=== PATIENT | female | born 1990 | race African-American/Black ===

== ENCOUNTER 2017-07-08 17:59 | Emergency (ER) | payer MEDICAID ==
[2017-07-08 18:24] VITALS: BP 141/88
[2017-07-08] MEDS ORDERED: ACETAMINOPHEN 325 MG TABLET PO ONE (19:08)
--- NOTE | 2017-07-08 19:11 | ER Document Report ---
HPI - HPI Patient complains to provider of: Injured right foot Onset: This afternoon - 1200 Pain Level: 5 Context: 26-year-old female injured her right ankle and foot when she stepped off of her porch at her lunch break today from [employer] at 12 noon. She had to go back to work and was forced to work on it ambulating with her shoe on until 4:00. When she got in her car and looked at it she saw how swollen it was. Now it hurts so much she cannot walk on it. No previous injury. sHe does not want to take anything other than Tylenol for pain because she might be . Associated Symptoms: None Exacerbated by: Walking Relieved by: Denies Similar symptoms previously: No Recently seen / treated by doctor: No - ROS ROS below otherwise negative: Yes Systems Reviewed and Negative: Yes All other systems reviewed and negative - REPRODUCTIVE Reproductive: DENIES: : Past Medical History - General Information source: Patient - Social History Smoking Status: Never Smoker Frequency of alcohol use: None Drug Abuse: None Lives with: Family Family History: Reviewed & Not Pertinent Patient has suicidal ideation: No Patient has homicidal ideation: No - Past Medical History Cardiac Medical History: Reports: Hx Hypertension - Not medicated Neurological Medical History: Reports: Hx Migraine Renal/ Medical History: Denies: Hx Peritoneal Dialysis Surgical Hx: Negative - Immunizations Immunizations up to date: Yes Hx Diphtheria, Pertussis, Tetanus Vaccination: Yes Vertical Provider Document - CONSTITUTIONAL Agree With Documented VS: Yes Exam Limitations: No Limitations - INFECTION CONTROL TRAVEL OUTSIDE OF THE [place] IN LAST 30 DAYS: No - HEENT HEENT: Atraumatic, Normocephalic - NECK Neck: Supple - RESPIRATORY O2 Sat by Pulse Oximetry: 99 - MUSCULOSKELETAL/EXTREMETIES Musculoskeletal/Extremeties: Tender, Edema, Eccymosis - Dorsal lateral proximal right foot and some tenderness in the lateral malleolus. Nontender base of the fifth MT - NEURO Level of Consciousness: Awake, Alert Notes: 2+ DP on the right - DERM Integumentary: Warm, Dry, No Rash Course - Re-evaluation Re-evalutation: 07/08/17 19:49 xAYS negative per rad - Vital Signs Vital signs: Temp Pulse Resp BP Pulse Ox 98.4 F 105 H 16 141/88 H 99 07/08/17 18:23 07/08/17 18:23 07/08/17 18:23 07/08/17 18:23 07/08/17 18:23 Procedures - Immobilization Right Ankle Time completed: 20:36 Pre-Proc Neuro Vasc Exam: Normal Immobilizer type: Leroy wrap - padded Performed by: PCT Post-Proc Neuro Vasc Exam: Normal Alignment checked and good: Yes Discharge - Discharge Clinical Impression: Strain of right ankle and foot Qualifiers: Encounter type: initial encounter Qualified Code(s): S96.911A - Strain of unspecified muscle and tendon at ankle and foot level, right foot, initial encounter Condition: Good Disposition: HOME, SELF-CARE Instructions: Acetaminophen, Leroy Wrap ([facility]), Use of Crutches ([facility]), Sprain ([facility] ), Sprained Ankle ([facility]) Additional Instructions: elevate crutches few days leroy wrap for comfort to er any concerns orthopedic doctor if pain persists Please complete the patient satisfaction survey if you get one, and return it.. If you do not receive a survey, then you can go to the [facility] website, [email or web address] and place your comments about your very good care. Thank you very much. It was a pleasure being your medical provider today. Forms: Return to Work
--- NOTE | 2017-07-08 19:35 | RADIOLOGY REPORT (SQ) ---
EXAM DESCRIPTION: ANKLE RIGHT COMPLETE COMPLETED DATE/TIME: 07/08/2017 7:20 pm REASON FOR STUDY: inversion injury COMPARISON: None. NUMBER OF VIEWS: Three views. TECHNIQUE: AP, lateral, and oblique radiographic images acquired of the right ankle. LIMITATIONS: None. FINDINGS: MINERALIZATION: Normal. BONES: No acute fracture or dislocation. No worrisome bone lesions. JOINTS: No effusions. SOFT TISSUES: Lateral soft tissue swelling. No foreign body. OTHER: No other significant finding. IMPRESSION: No fracture. TECHNICAL DOCUMENTATION: JOB ID: [id number] [employer]- All Rights Reserved
--- NOTE | 2017-07-08 19:37 | RADIOLOGY REPORT (SQ) ---
EXAM DESCRIPTION: FOOT RIGHT COMPLETE COMPLETED DATE/TIME: 07/08/2017 7:20 pm REASON FOR STUDY: inversion injury COMPARISON: None. NUMBER OF VIEWS: Three views. TECHNIQUE: AP, lateral and oblique radiographic images acquired of the right foot. LIMITATIONS: None. FINDINGS: MINERALIZATION: Normal. BONES: No acute fracture or dislocation. No worrisome bone lesions. JOINTS: No effusions. SOFT TISSUES: Mild lateral soft tissue swelling. No foreign body. OTHER: No other significant finding. IMPRESSION: NO RADIOGRAPHIC EVIDENCE OF ACUTE INJURY. TECHNICAL DOCUMENTATION: JOB ID: [id number] [employer]- All Rights Reserved
== END 2017-07-08 21:05 | disposition home or self-care (01) ==
LOC: ER 17:59
DX: S96.911A Strain of unspecified muscle and tendon at ankle and foot level, right foot, initial encounter (principal); X58.XXXA Exposure to other specified factors, initial encounter; I10 Essential (primary) hypertension
CPT/HCPCS: 99283; 73610; 73630; J3490

== ENCOUNTER 2018-01-21 15:01 | Outpatient (CLI) | payer MEDICAID | END 2018-01-21 16:00 | disposition home or self-care (01) | LOC: LC 15:01 | PROVIDERS: ATTEND Obstetrics & Gynecology Gynecology | PROC: 4A1HXCZ Monitoring of Products of Conception, Cardiac Rate, External Approach (ICD-10-PCS; principal; 2018-01-21) | DX: O24.419 Gestational diabetes mellitus in pregnancy, unspecified control (principal); Z3A.35 35 weeks gestation of pregnancy | CPT/HCPCS: 59025 ==

== ENCOUNTER 2018-01-28 14:36 | Outpatient (CLI) | payer MEDICAID ==
--- NOTE | 2018-01-28 14:40 | Non Stress Test Report ---
Non Stress Test Datetime Report Generated by CPN: 01/28/2018 14:40 DEMOGRAPHIC EGA NST: 35.0 INDICATION Indication for Study: Diabetes Mellitus VITAL SIGNS Temperature - NST: 98.2 Pulse - NST: 90 RESP - NST: 18 NBPSYS NST: 116 NBPDIA NST: 63 MONITORING Monitor Explained: Monitor Explained; Test Explained; Patient Verbalized Understanding Time on Monitor: 01/21/2018 15:13 Time on Monitor: 01/21/2018 15:13 Time off Monitor: 01/21/2018 15:55 NST Duration: 42 NST INTERVENTIONS NST Interventions: PO Hydration; Reposition Patient NST Interventions: PO Hydration; Reposition Patient Physician Notified NST: A EMMEL, CNM REVIEWED STRIP BABY A: [id number] BABY A Movement : Present Contraction Frequency : NONE FHR Baseline : 140 Accelerations : 15X15 Decelerations : None Variability : Moderate 6-25bpm NST Review: Meets Criteria for Reactive NST NST Review and Verified By : D Latoshaavance RNC NST REPORT Report Trigger: Send Report
--- NOTE | 2018-01-28 15:45 | Non Stress Test Report ---
Non Stress Test Datetime Report Generated by CPN: 01/28/2018 15:45 DEMOGRAPHIC EGA NST: 36.0 INDICATION Indication for Study: Diabetes Mellitus; Other Indication for Study (NST) Other: repeat NST, sent from office VITAL SIGNS Temperature - NST: 97.7 Pulse - NST: 88 RESP - NST: 12 NBPSYS NST: 122 NBPDIA NST: 81 MONITORING Monitor Explained: Monitor Explained; Test Explained; Patient Verbalized Understanding Time on Monitor: 01/28/2018 14:47 Time off Monitor: 01/28/2018 15:25 NST Duration: 38 NST INTERVENTIONS NST Interventions: PO Hydration Physician Notified NST: P CARRILLO, CNM REVIEWED STRIP Physician Notified NST: P. Carrillo CNM BABY A Movement : Present Contraction Frequency : 4-11 FHR Baseline : 140 Accelerations : 15X15 Decelerations : None Variability : Moderate 6-25bpm NST Review: Meets Criteria for Reactive NST NST Review and Verified By : LYNDSAY DUFF, RN NST Results: Reactive NST REPORT Report Trigger: Send Report
== END 2018-01-28 15:28 | disposition home or self-care (01) ==
LOC: LC 14:36
PROVIDERS: ATTEND Obstetrics & Gynecology Gynecology
PROC: 4A1HXCZ Monitoring of Products of Conception, Cardiac Rate, External Approach (ICD-10-PCS; principal; 2018-01-28)
DX: O24.419 Gestational diabetes mellitus in pregnancy, unspecified control (principal); Z3A.36 36 weeks gestation of pregnancy
CPT/HCPCS: 59025

== ENCOUNTER 2018-02-24 05:23 | Inpatient (IN) | payer MEDICAID ==
[2018-02-24] MEDS ORDERED: PENICILLIN G-K 5 MILLION UNIT VIAL ONE (05:47)
--- NOTE | 2018-02-24 05:58 | Admission Physical ---
Datetime Report Generated by CPN: 02/24/2018 05:57 CURRENT ADMISSION Chief Complaint: Uterine Contractions Indication for Induction: Not Applicable Admit Impression : Term, Intrauterine Admit Plan: Admit to Unit; Initiate Labor Protocol ALLERGIES Medication Allergies: No Medication Allergies: oxycodone HCl (02/24/2018); hydrocodone (02/24/2018) Latex: No Latex Allergies OBSTETRICAL HISTORY EDC: 02/25/2018 00:00 : 3 Para: 2 Term: 2 : 0 SAB: 0 IAB: 0 Ectopic: 0 Livin Cesareans: 0 VBACs: 0 Multiple Births: 0 Gestational Diabetes: Yes Rh Sensitization: No Incompetent Cervix: No KATIE: No Infertility: No ART Treatment: No Uterine Anomaly: No IUGR: No Hx Previous C/S: No Macrosomia: No Hx Loss/Stillborn: No PIH: No Hx : No Placenta Previa/Abruption: No Depression/PP Depression: No PTL/PROM: No Post Hemorrhage: No Current Procedures: Ultrasound; NST Obstetrical History Comments: G1 - 2007 Boy 7 lb 3 oz G2 - 2016 Girl 7 lb 3 oz G3 - current GDM diet controlled SEE RECORDS Alcohol: No Marijuana : No Cocaine: No Other Illicit Drugs: No Cigarettes: Current Everyday Smoker. 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 Surgery: No Heart Disease: No Hosp/Surgery: Yes Autoimmune Disorder: No Anesthetic Complications: No Kidney Disease: No Abnormal Pap Smear: No Neuro/Epilepsy: No Psychiatric Disorders: No Other Medical Diseases: No Hepatitis/Liver Disease: No Significant Family History: No Varicosities/Phlebitis: No Trauma/Violence : No Thyroid Dysfunction: No Medical History Comments: Borderline HTN INFECTIOUS HISTORY Gonorrhea: Yes Genital Herpes: No Chlamydia: Yes Tuberculosis: No Syphilis: No Hepatitis: No HIV/AIDS Exposure: No Rash or Viral Illness: No HPV: No Infectious History Comments: Gonorrhea/Chlamydia - 06/26 PHYSICAL EXAM General: Normal HEENT: Normal Neurologic: Normal Thyroid: Normal Heart: Normal Lungs: Normal Breast: Normal Back: Normal Abdomen: Normal Genitourinary Exam: Normal Extremities: Normal DTRs: Normal Pelvic Type: Adequate Vital Signs: Reviewed VAGINAL EXAM Dilatation: 8 Effacement: 100 Station: -1 MEMBRANES Pooling: Negative Membranes: Intact FETUS A EGA: 39.6 Monitoring: External US FHR- Baseline: 140 Variability: Moderate 6-25bpm Accelerations: 15X15 Decelerations: None FHR Category: Category I Estimated Weight (gm): 3500 Presentation: Vertex PLANS FOR LABOR AND DELIVERY Labor and Delivery: None Pain Management: None Feeding Preference: Both Benefit of Breast Feed Discussed: Yes Circumcision: Yes INFORMED CONSENT Signature: with User ID: [email or web address]
[2018-02-24] MEDS ORDERED: PENICILLIN G POTASSIUM 5,000,000 UNIT in DEXTROSE 5%-WATER 100 ML IV ONE (06:04)
[2018-02-24] MEDS ORDERED: MISOPROSTOL 0.2 MG TABLET ONE (06:11)
[2018-02-24] MEDS ORDERED: LIDOCAINE 1% INJ-PF (10 MG/ML) 30 ML SDV ONE (06:11)
[2018-02-24] MEDS ORDERED: OXYTOCIN/NORMAL SALINE 20 UNIT/1,000 ML RTUINJ ONE (06:11)
[2018-02-24 06:32] LABS: APPEARANCE,URINE CLOUDY; BILIRUBIN,URINE NEGATIVE (NEGATIVE); COLOR,URINE YELLOW; GLUCOSE, URINE NEGATIVE (NEGATIVE); KETONES,URINE NEGATIVE (NEGATIVE); LEUKOCYTE ESTERASE,URINE SMALL (NEGATIVE); NITRITE,URINE NEGATIVE (NEGATIVE); PROTEIN,URINE NEGATIVE (NEGATIVE); URINE SPECIFIC GRAVITY 1.012; UROBILINOGEN,URINE NEGATIVE mg/dL (<2.0)
[2018-02-24 06:52] LABS: ABSOLUTE BASOPHILS # (AUTO) 0.1 10^3/uL (0.0-0.2); ABSOLUTE EOSINOPHILS # (AUTO) 0.2 10^3/uL (0.0-0.6); ABSOLUTE LYMPHOCYTES (AUTO) 2.6 10^3/uL (0.5-4.7); ABSOLUTE MONOCYTES (AUTO) 0.6 10^3/uL (0.1-1.4); ABSOLUTE NEUT (AUTO) 6.4 10^3/uL (1.7-8.2); BASOPHILS % (AUTO) 0.6 % (0-2); HEMATOCRIT 30.6 % (36.0-47.0); HEMOGLOBIN 10.4 g/dL (12.0-15.5); MEAN CORPUSCULAR HEMOGLOBIN 30.2 pg (27.0-33.4); MEAN CORPUSCULAR HGB CONC 33.9 g/dL (32.0-36.0); MEAN CORPUSCULAR VOLUME 89 fl (80-97); MONOCYTES % (AUTO) 6.1 % (3-13); PLATELET COUNT 212 10^3/uL (150-450); RED BLOOD COUNT 3.43 10^6/uL (3.72-5.28); RED CELL DISTRIBUTION WIDTH 14.7 % (11.5-14.0); SEGMENTED NEUTROPHILS % (AUTO) 65.3 % (42-78); TOTAL CELLS COUNTED % (AUTO) 100 %; WHITE BLOOD COUNT 9.8 10^3/uL (4.0-10.5)
[2018-02-24 06:54] LABS: URINE AMPHETAMINES SCREEN NEGATIVE; URINE BARBITURATES SCREEN NEGATIVE; URINE BENZODIAZEPINES SCREEN NEGATIVE; URINE COCAINE SCREEN NEGATIVE; URINE MARIJUANA (THC) SCREEN NEGATIVE; URINE METHADONE SCREEN NEGATIVE; URINE PHENCYCLIDINE SCREEN NEGATIVE
[2018-02-24] MEDS ORDERED: ACETAMINOPHEN WITH CODEINE #3 TABLET PO PRN (08:14)
[2018-02-24] MEDS ORDERED: ZOLPIDEM TARTRATE 5 MG TABLET PO PRN (08:14)
[2018-02-24] MEDS ORDERED: MEASLES,MUMPS&RUBELLA VACC/PF 0.5 ML VIAL SUBCUT PRN (08:14)
[2018-02-24] MEDS ORDERED: DIPH/PERTUSS(ACELL)/TETANUS VAC/PF 0.5 ML SYR (>=10YO) IM PRN (08:14)
[2018-02-24] MEDS ORDERED: DIBUCAINE 1% OINTMENT 28 GM TP PRN (08:14)
[2018-02-24] MEDS ORDERED: OXYTOCIN/NORMAL SALINE 20 UNIT/1,000 ML RTUINJ IV PRN (08:14)
[2018-02-24] MEDS ORDERED: BENZOCAINE/MENTHOL AEROSOL SPRAY 56 ML TOP PRN (08:14)
[2018-02-24] MEDS ORDERED: ACETAMINOPHEN 325 MG TABLET ONE (08:20)
[2018-02-24] MEDS ORDERED: ACETAMINOPHEN WITH CODEINE #3 TABLET ONE (08:26)
[2018-02-24] MEDS ORDERED: IBUPROFEN 800 MG TABLET ONE (08:27)
[2018-02-24] MEDS: SENNOSIDES/DOCUSATE 8.6-50 MG 1 EACH TABLET PO SCH (09:33)
[2018-02-24] MEDS: FERROUS SULFATE 325 MG TABLET PO SCH ×2 (09:33→18:11)
[2018-02-24] MEDS: PRENATAL VITAMIN W DHA CAPSULE PO SCH (09:33)
[2018-02-24] MEDS: DOCUSATE SODIUM 100 MG CAPSULE PO SCH ×2 (09:34→18:11)
[2018-02-24] MEDS ORDERED: PENICILLIN G-K 5 MILLION UNIT VIAL IV SCH (10:00)
[2018-02-24] MEDS ORDERED: PENICILLIN G POTASSIUM 2,500,000 UNIT in DEXTROSE 5%-WATER 50 ML IV SCH (10:07)
--- NOTE | 2018-02-24 10:20 | Delivery Summary ---
Del Sum A-C Datetime Report Generated by CPN: 02/24/2018 10:19 DELIVERY PERSONNEL DELIVERY PERSONNEL: [id number] Delivery Doctor:: Sana Echavarria MD Labor and Delivery Nurse:: Norma Soto RN Nursery Nurse:: Dianelys Bashir RN Student Observers:: Russ BENAVIDES RN Stone Chimney Mason/CARPENTRY SUPERVISOR: Bianca Adkins CNA II MATERNAL INFORMATION Delivery Anesthesia: None Medications After Delivery: Pitocin Bolus-Please Comment; Pitocin Drip 20 Units/1000ml NSS Estimated Blood Loss (ml): 200 Maternal Complications: None Provider Comments: of viable male , over intact perineum, head, shoulders, and body delivered without difficulty, infant with spontaneous cry and respirations, to maternal abdomen, cord clamped X2, and infant cut free. Spontaneous delivery of placenta via guerrier mechanism, appears intact, 3 VC, vagina and perineum inspected, no laceratins noted, hemostasis acheived with external fundal massage and iv pitocin, routine pp care. mother and infant in stable condition. LABOR SUMMARY EDC: 02/25/2018 00:00 No. Babies in Womb: 1 Attempted: No Labor Anesthesia: None LABOR INFORMATION Reason for Induction: Not Applicable Onset of Labor: 02/24/2018 05:30 Complete Dilatation: 02/24/2018 07:45 Oxytocin: N/A Group B Beta Strep: Positive Antibiotics # of Doses: 1 Antibiotics Time of Last Dose: 0602 Name of Antibiotic Given: PENICILLIN G Steroids Given: None Reason Steroids Not Administered: Not Applicable MEMBRANES Membranes Rupture Method: Artificial Rupture of Membranes: 02/24/2018 06:30 Length of Rupture (hr): 1.42 Amniotic Fluid Color: Clear Amniotic Fluid Amount: Small STAGES OF LABOR Stage 1 hr: 2 Stage 1 min: 15 Stage 2 hr: 0 Stage 2 min: 10 Stage 3 hr: 0 Stage 3 min: 3 Total Time in Labor hr: 2 Total Time in Labor min: 28 VAGINAL DELIVERY Episiotomy: None Laceration #1: None Laceration Extension #1: N/A Laceration Repair: Not Applicable Sponge Count Correct: N/A Sharps Count Correct: N/A CSECTION DELIVERY Primary Indication: N/A CSection Incision: N/A BABY A INFORMATION Infant Delivery Date/Time: 02/24/2018 07:55 Method of Delivery: Vaginal Born in Route : No : N/A Forceps: N/A Vacuum Extraction: N/A Shoulder Dystocia : No PRESENTATION/POSITION BABY A Presentation: Cephalic Cephalic Presentation: Vertex Vertex Position: Left Occipital Anterior Breech Presentation: N/A PLACENTA INFORMATION BABY A Placenta Delivery Time : 02/24/2018 07:58 Placenta Method of Delivery: Spontaneous Placenta Status: Delivered SCORES BABY A Heart Rate 1 min: >100 bpm Resp Effort 1 min: Good Cry Reflex Irritability 1 min: Cough or Sneeze or Pulls Away Muscle Tone 1 min: Active Motion Color 1 min: Body Golovin, Extremities Blue Resuscitation Effort 1 min: Tactile Stimulation SCORE 1 MIN: 9 Heart Rate 5 min: >100 bpm Resp Effort 5 min: Good Cry Reflex Irritability 5 min: Cough or Sneeze or Pulls Away Muscle Tone 5 min: Active Motion Color 5 min: Body Golovin, Extremities Blue Resuscitation Effort 5 min: Tactile Stimulation SCORE 5 MIN: 9 INFORMATION BABY A Gestational Age at Delivery: 39.6 (Annotations: Data stored by [facility] on behalf of user) Gestational Status: Full Term- 39- 40.6 Weeks Outcome : Liveborn Condition : Stable Sex: Male IDENTIFICATION BABY A Infant Verification Date/Time: 02/24/2018 08:31 ID Band Number: [id number] Mother's Name Verified: Yes RN Verifying Infant: CKyles, RN/CMavis Lei, RN WEIGHT/LENGTH BABY A Birthweight (gm): 3480 Infant Weight (lb): 7 Infant Weight (oz): 11 Infant Length (in): 20.00 Infant Length (cm): 50.80 CORD INFORMATION BABY A No. Cord Vessels: 3 Nuchal Cord : Around Neck x1, Loose Cord Blood Taken: Yes-For Eval (Mom's Blood Type - or O+) Infant Suction: None ASSESSMENT BABY A Complications: None Physical Findings at Delivery: Within Normal Limits Respirations: Appears Normal Skin to Skin: Yes Oracle Identity Management Consultant/ALS Called : No Infant Care By: A DELMORE, RN Transferred To: Nursery BABY B INFORMATION : N/A SIGNATURES Assignment: Sana Echavarria MD Signature: with User ID: [email or web address] : with User ID: [email or web address]
[2018-02-24] MEDS: IBUPROFEN 800 MG TABLET PO SCH ×2 (13:08→21:38)
[2018-02-24] MEDS: ACETAMINOPHEN WITH CODEINE #3 TABLET PO PRN ×2 (14:55→21:54)
[2018-02-25] MEDS: IBUPROFEN 800 MG TABLET PO SCH ×3 (06:01→21:25)
[2018-02-25 07:34] LABS: HEMATOCRIT 28.8 % (36.0-47.0); HEMOGLOBIN 9.8 g/dL (12.0-15.5); MEAN CORPUSCULAR HEMOGLOBIN 30.4 pg (27.0-33.4); MEAN CORPUSCULAR HGB CONC 33.9 g/dL (32.0-36.0); MEAN CORPUSCULAR VOLUME 90 fl (80-97); PLATELET COUNT 213 10^3/uL (150-450); RED BLOOD COUNT 3.21 10^6/uL (3.72-5.28); RED CELL DISTRIBUTION WIDTH 14.2 % (11.5-14.0); WHITE BLOOD COUNT 10.7 10^3/uL (4.0-10.5)
[2018-02-25] MEDS: ACETAMINOPHEN WITH CODEINE #3 TABLET PO PRN (08:51)
[2018-02-25] MEDS: FERROUS SULFATE 325 MG TABLET PO SCH ×2 (09:14→18:25)
[2018-02-25] MEDS: SENNOSIDES/DOCUSATE 8.6-50 MG 1 EACH TABLET PO SCH (09:14)
[2018-02-25] MEDS: DOCUSATE SODIUM 100 MG CAPSULE PO SCH ×2 (09:14→18:25)
[2018-02-25] MEDS: PRENATAL VITAMIN W DHA CAPSULE PO SCH (09:14)
--- NOTE | 2018-02-25 10:52 | PDOC PROGRESS REPORT ---
Subjective-OB Progress Note for:: 02/25/18 Subjective: s/p day #1 Pt doing well, states lochia is stable, pain well controlled, voiding without difficulty, bonding with baby. Physical Exam (OB) Vital Signs: Temp Pulse Resp BP Pulse Ox 98.0 F 89 18 118/83 99 02/25/18 08:48 02/25/18 08:48 02/25/18 08:48 02/25/18 08:48 02/25/18 08:48 Intake & Output 02/24/18 02/25/18 02/26/18 06:59 06:59 06:59 Weight 96 kg - Lochia Lochia Amount: Small 10-25 ml Lochia Color: Rubra/Red - Abdomen Description: Soft, Round Hernia Present: No Fundal Description: Firm, Midline Fundal Height: u/u - u/2 Objective-Diagnostic Laboratory: 02/25/18 07:06 02/25/18 07:06 WBC 10.7 H RBC 3.21 L Hgb 9.8 L Hct 28.8 L MCV 90 MCH 30.4 MCHC 33.9 RDW 14.2 H Plt Count 213 Assessment and Plan(PN) - Assessment and Plan (1) Acute blood loss anemia Is this a current diagnosis for this admission?: Yes Plan: ferrous sulfate increase dietary iron (2) Delivery normal Is this a current diagnosis for this admission?: Yes Plan: routine pp care - Time Spent with Patient Time with patient: Less than 15 minutes Critical Time spent with patient: Less than 15 minutes Medications reviewed and adjusted accordingly: Yes - Disposition Anticipated Discharge: Home Within: within 24 hours
[2018-02-26] MEDS: IBUPROFEN 800 MG TABLET PO SCH (06:10)
[2018-02-26] MEDS: PRENATAL VITAMIN W DHA CAPSULE PO SCH (09:16)
[2018-02-26] MEDS: FERROUS SULFATE 325 MG TABLET PO SCH (09:16)
[2018-02-26] MEDS: DOCUSATE SODIUM 100 MG CAPSULE PO SCH (09:16)
[2018-02-26] MEDS: SENNOSIDES/DOCUSATE 8.6-50 MG 1 EACH TABLET PO SCH (09:16)
[2018-02-26 11:08] VITALS: BP 130/76
--- NOTE | 2018-02-26 11:22 | PDOC PROGRESS REPORT ---
Subjective-OB Progress Note for:: 02/26/18 Subjective: Ready to go home. Physical Exam (OB) Vital Signs: Temp Pulse Resp BP Pulse Ox 98.1 F 94 18 130/76 H 99 02/26/18 11:01 02/26/18 11:01 02/26/18 11:01 02/26/18 11:01 02/26/18 11:01 - PIH/Pre-Eclampsia DTR's: 1 + Clonus: Negative Headache: Absent Epigastric Pain: No Visual Changes: No - Lochia Lochia Amount: Small 10-25 ml Lochia Color: Rubra/Red - Abdomen Description: Soft, Round Hernia Present: No Bowel Sounds: Normoactive Flatus Presence: Present Stool: No Fundal Description: Firm, Midline Fundal Height: u/u - u/2 Objective-Diagnostic Laboratory: 02/25/18 07:06 Assessment and Plan(PN) - Time Spent with Patient Medications reviewed and adjusted accordingly: Yes - Disposition Anticipated Discharge: Home
--- NOTE | 2018-02-26 12:09 | PDOC DISCHARGE SUMMARY ---
Final Diagnosis Discharge Date: 02/26/18 - Final Diagnosis (1) Acute blood loss anemia Is this a current diagnosis for this admission?: Yes (2) Delivery normal Is this a current diagnosis for this admission?: Yes (3) GBS (group B Streptococcus carrier), +RV culture, currently Is this a current diagnosis for this admission?: Yes Discharge Data - Discharge Medication Prescriptions: Ferrous Sulfate [Feosol 325 mg Tablet] 325 mg PO BID #60 tablet Home Medications: Ferrous Sulfate [Feosol 325 mg Tablet] 325 mg PO BID #60 tablet 02/26/18 Vit/Dha [ Multi + Dha Capsule] 1 cap PO DAILY capsule Gestational Age: 39.6 wks Reason(s) for Admission: Onset of Labor Procedures: Ultrasound Intrapartum Procedure(s): Spontaneous Vaginal Delivery - [place] Data Baby 1 Male at 1 minute: 9 at 5 minutes: 9 Weight: 3.487 kg Home with Mother: Yes Complications: No - Diagnosis Test Laboratory: Temp Pulse Resp BP Pulse Ox 98.1 F 94 18 130/76 H 99 02/26/18 11:01 02/26/18 11:01 02/26/18 11:01 02/26/18 11:01 02/26/18 11:01 02/24/18 02/24/18 02/25/18 05:33 06:10 07:06 RBC 3.43 L 3.21 L Hgb 10.4 L 9.8 L Hct 30.6 L 28.8 L Urine Opiates Screen NEGATIVE - Discharge information/Instructions Discharge Activity: Activity As Tolerated, Balance Activity w/Rest, Pelvic Rest , Slowly Increase Activity, No tub bath Discharge Diet: Regular Disposition: HOME, SELF-CARE Follow up with: [facility] in: 4, Weeks
== END 2018-02-26 13:57 | disposition home or self-care (01) | DRG 775 ==
LOC: LC 05:23 → LR 06:01 → 2S 09:21
PROVIDERS: ADMIT Obstetrics & Gynecology; ATTEND Obstetrics & Gynecology
PROC: 10E0XZZ Delivery of Products of Conception, External Approach (ICD-10-PCS; principal; 2018-02-24)
PROC: 10907ZC Drainage of Amniotic Fluid, Therapeutic from Products of Conception, Via Natural or Artificial Opening (ICD-10-PCS; 2018-02-24)
PROC: 4A1HXCZ Monitoring of Products of Conception, Cardiac Rate, External Approach (ICD-10-PCS; 2018-02-24)
DX: O99.824 Streptococcus B carrier state complicating childbirth (principal); D62 Acute posthemorrhagic anemia; O24.429 Gestational diabetes mellitus in childbirth, unspecified control; O99.02 Anemia complicating childbirth; O24.420 Gestational diabetes mellitus in childbirth, diet controlled; O99.334 Smoking (tobacco) complicating childbirth; F17.210 Nicotine dependence, cigarettes, uncomplicated; O69.81X0 Labor and delivery complicated by cord around neck, without compression, not applicable or unspecified; Z88.6 Allergy status to analgesic agent; Z37.0 Single live birth; Z3A.39 39 weeks gestation of pregnancy
CPT/HCPCS: 36415; 80307; 81005; 85025; 85027; 86592; 86850; 86900; 86901; J2540; J2590; J3490

== ENCOUNTER 2018-10-16 07:44 | Emergency (ER) | payer SELFPAY ==
[2018-10-16] MEDS ORDERED: KETOROLAC TROMETHAMINE 60 MG/2 ML SDV IM ONE (08:37)
--- NOTE | 2018-10-16 09:01 | RADIOLOGY REPORT (SQ) ---
EXAM DESCRIPTION: HIP LEFT AP/LATERAL COMPLETED DATE/TIME: 10/16/2018 8:52 am REASON FOR STUDY: left hip/groin pain COMPARISON: None. NUMBER OF VIEWS: Two views. TECHNIQUE: AP and frog-leg view of the left hip. LIMITATIONS: None. FINDINGS: MINERALIZATION: Normal. LEFT HIP: No fracture or dislocation. No worrisome bone lesions. No contour deformity. No joint spa ce narrowing. OPPOSITE HIP: No fracture or dislocation. No worrisome bone lesions. SOFT TISSUES: No findings. OTHER: No other significant finding. IMPRESSION: NEGATIVE STUDY OF THE LEFT HIP. NO EXPLANATION FOR PAIN. TECHNICAL DOCUMENTATION: JOB ID: [id number] [employer]- All Rights Reserved Reading location - IP/workstation name: [email or web address]
[2018-10-16] MEDS ORDERED: LIDOCAINE 5% (700 MG) TRANSDERMAL ADH..PATCH TP ONE (10:02)
[2018-10-16] MEDS ORDERED: CYCLOBENZAPRINE HCL 10 MG TABLET PO ONE (10:02)
--- NOTE | 2018-10-16 10:12 | RADIOLOGY REPORT (SQ) ---
EXAM DESCRIPTION: VENOUS UNILATERAL LOWER COMPLETED DATE/TIME: 10/16/2018 10:04 am REASON FOR STUDY: LLE pain COMPARISON: None. TECHNIQUE: Dynamic and static odom scale and color images acquired of the left leg venous system. Se lected spectral images acquired with additional compression and augmentation maneuvers. The contralat eral common femoral vein and saphenofemoral junction were also imaged. Images stored on PACS. LIMITATIONS: None. FINDINGS: COMMON FEMORAL: Normal phasicity, compression and augmentation. No visualized echogenic ma terial on odom scale. No defects on color images. FEMORAL: Normal compression and augmentation. No visualized echogenic material on odom scale. No defe cts on color images. POPLITEAL: Normal compression, augmentation. No visualized echogenic material on odom scale. No defec ts on color images. CALF VESSELS: Normal compression, augmentation. No visualized echogenic material on odom scale. No de fects on color images. GSV and SSV: Normal compression, augmentation. No visualized echogenic material on odom scale. No def ects on color images. ANY DEEP VENOUS INSUFFICIENCY: Not evaluated. ANY EVIDENCE OF POPLITEAL CYST: No. OTHER: No other significant finding. CONTRALATERAL COMMON FEMORAL VEIN AND SAPHENOFEMORAL JUNCTION: Normal phasicity, compression and augmentation. No visualized echogenic material on odom scale. No de fects on color images. IMPRESSION: Negative ultrasound examination for deep venous thrombosis in the left lower extremity. TECHNICAL DOCUMENTATION: JOB ID: [id number] [employer]- All Rights Reserved Reading location - IP/workstation name: [email or web address]
--- NOTE | 2018-10-16 10:17 | ER Document Report ---
HPI - HPI Time Seen by Provider: 10/16/18 08:05 Pain Level: 5 Notes: Patient is an otherwise healthy 28-year-old female who presents with chief complaint of anterior left thigh pain that radiates down to her knee. She denies any recent injury to the area. She denies any heavy lifting that she can think of. States she has taken Tylenol and ibuprofen with minimal relief. Patient denies any history of DVT or PE. Denies any recent travel, denies use of any oral contraceptives, she does report that she is a smoker, denies any surgeries. - REPRODUCTIVE Reproductive: DENIES: : Past Medical History - General Information source: Patient - Social History Smoking Status: Current Some Day Smoker Frequency of alcohol use: None Drug Abuse: None Family History: Reviewed & Not Pertinent Patient has suicidal ideation: No Patient has homicidal ideation: No - Past Medical History Cardiac Medical History: Reports: Hx Hypertension - Not medicated Neurological Medical History: Reports: Hx Migraine Renal/ Medical History: Denies: Hx Peritoneal Dialysis - Immunizations Immunizations up to date: Yes Hx Diphtheria, Pertussis, Tetanus Vaccination: Yes Vertical Provider Document - CONSTITUTIONAL Notes: PHYSICAL EXAMINATION: GENERAL: Well-appearing, well-nourished and in no acute distress. HEAD: Atraumatic, normocephalic. EYES: Pupils equal round extraocular movements intact, conjunctiva are normal. ENT: Nares patent NECK: Normal range of motion LUNGS: No respiratory distress Musculoskeletal: Normal range of motion, normal femoral pulse, popliteal pulse and dorsalis pedis pulse. No swelling or erythema noted. NEUROLOGICAL: Normal speech, normal gait. PSYCH: Normal mood, normal affect. SKIN: Warm, Dry, normal turgor, no rashes or lesions noted. - INFECTION CONTROL TRAVEL OUTSIDE OF THE [place] IN LAST 30 DAYS: No Course - Re-evaluation Re-evalutation: X-ray of the left hip is unremarkable with no evidence of fracture or dislocation. Venous Doppler ultrasound negative for any DVT or SVT. Patient endorses significant relief of her pain after administration of IM Toradol. Patient will be discharged home in stable condition. - Vital Signs Vital signs: Temp Pulse Resp BP Pulse Ox 97.7 F 98 16 173/100 H 97 10/16/18 07:51 10/16/18 07:51 10/16/18 07:51 10/16/18 07:51 10/16/18 07:51 Discharge - Discharge Clinical Impression: Left hip pain Condition: Stable Disposition: HOME, SELF-CARE Additional Instructions: Muscle Strain You have strained a muscle -- torn the fibers within the muscle. This often occurs with strenuous exertion, or during an injury that suddenly stretches the muscle. The seriousness of a strain varies. Some strains heal within days, others cause problems for months. X-rays cannot show a muscle strain. X-rays are taken only if symptoms suggest that a fracture could be present. The usual treatment of a muscle strain is rest and ice packs. Sometimes, a sling, splint, or crutches may be necessary to rest the muscle. The muscle can be used again once pain subsides. Severe strains require a special exercise and stretching program to prevent permanent stiffness and disability. Your doctor will advise you if this will be necessary. Call the doctor immediately if pain or swelling becomes severe, or if numbness or discoloration develop. Both the x-ray and the ultrasound of your left leg are negative for any acute findings. This leads me to believe that your pain is most likely being caused by a musculoskeletal strain. Take the medications as I have prescribed. Do not take ibuprofen with the medicines I have prescribed. You may take Tylenol with them. Please follow-up with your primary care doctor, there should be one listed on your Medicaid card. It is very important that you follow-up with your blood pressure medications as your blood pressure was elevated today. Prescriptions: Ketorolac Tromethamine [Toradol 10 mg Tablet] 10 mg PO Q6HP PRN #20 tablet PRN Reason: Amlodipine Besylate [Norvasc 5 mg Tablet] 5 mg PO DAILY #30 tablet Cyclobenzaprine HCl [Flexeril 10 mg Tablet] 10 mg PO TIDP PRN #20 tab PRN Reason: Lidocaine [Lidoderm 5% (700 mg) Transdermal Patch] 1 patch TP DAILY #30 adh..patch Forms: Return to Work Referrals: KAROLINE EWING MD [Primary Care Provider] - Follow up as needed
[2018-10-16 10:35] VITALS: BP 168/105
== END 2018-10-16 10:38 | disposition home or self-care (01) ==
LOC: ER 07:44
DX: M25.552 Pain in left hip (principal); M79.652 Pain in left thigh; M25.562 Pain in left knee; F17.200 Nicotine dependence, unspecified, uncomplicated; I10 Essential (primary) hypertension
CPT/HCPCS: 99284; 96372; 93971; 73502; J1885

== ENCOUNTER 2019-03-03 13:21 | Emergency (ER) | payer OTHER ==
[2019-03-03] MEDS ORDERED: IBUPROFEN 600 MG TABLET PO ONE (13:45)
[2019-03-03] MEDS ORDERED: SILVER SULFADIAZINE 1% CREAM 25 GM TP ONE (13:45)
[2019-03-03] MEDS ORDERED: TRAMADOL HCL 50 MG TABLET PO ONE (13:45)
[2019-03-03] MEDS ORDERED: DIPH/PERTUSS(ACELL)/TETANUS VAC/PF 0.5 ML SYR (>=10YO) IM ONE (13:47)
--- NOTE | 2019-03-03 14:02 | ER Document Report ---
Addendum entered and electronically signed by FAWN ZIEGLER NP 03/03/19 17:11: Discharge - Discharge Clinical Impression: Second degree burn of right wrist and hand Qualifiers: Encounter type: initial encounter Qualified Code(s): T23.271A - Burn of second degree of right wrist, initial encounter First degree burn of right hand Qualifiers: Encounter type: initial encounter Burn of hand location: multiple fingers excluding thumb Qualified Code(s): T23.131A - Burn of first degree of multiple right fingers (nail), not including thumb, initial encounter Condition: Stable Disposition: [place] Forms: Return to Work Referrals: KAROLINE EWING MD [ACTIVE STAFF] - Follow up as needed Original Note: ED Burn/Smoke/Toxic Fumes - General Chief Complaint: Burn Stated Complaint: BURN TO RIGHT ARM Time Seen by Provider: 03/03/19 13:41 Primary Care Provider: KAROLINE EWING MD [Primary Care Provider] - Follow up as needed Mode of Arrival: Ambulatory Information source: Patient TRAVEL OUTSIDE OF THE [place] IN LAST 30 DAYS: No - HPI Patient complains to provider of: Burn Notes: Patient here with complaints of burn to the right hand and wrist. The patient works at [employer], they were switching the coffee and hot coffee spilled burning the right hand and wrist. She complains of pain at this area that is constant and moderate to severe. Nothing seems to make it worse, it is better with cool water. Unsure of her last tetanus shot. She denies any fevers. She denies any numbness, tingling, weakness. No chest pain or shortness of breath. No difficulty breathing or swallowing. No nausea, vomiting, diarrhea. No redness, no drainage. She denies any other complaints at this time. - Related Data Allergies/Adverse Reactions: hydrocodone [From Vicodin] Allergy (Verified 03/03/19 13:37) oxycodone HCl [From Percocet] Allergy (Verified 03/03/19 13:37) Past Medical History - Social History Smoking Status: Current Every Day Smoker Frequency of alcohol use: None Drug Abuse: None Family History: Reviewed & Not Pertinent Patient has suicidal ideation: No Patient has homicidal ideation: No - Past Medical History Cardiac Medical History: Reports: Hx Hypertension - stopped taking medications Neurological Medical History: Reports: Hx Migraine Renal/ Medical History: Denies: Hx Peritoneal Dialysis - Immunizations Immunizations up to date: Yes Hx Diphtheria, Pertussis, Tetanus Vaccination: Yes Review of Systems - Review of Systems -: Yes All other systems reviewed and negative Physical Exam - Vital signs Vitals: Temp Pulse Resp BP Pulse Ox 98.0 F 109 H 18 154/135 H 100 03/03/19 13:25 03/03/19 13:25 03/03/19 13:25 03/03/19 13:25 03/03/19 13:25 - Notes Notes: GENERAL: alert, cooperative, nontoxic, no distress. HEAD: normocephalic, atraumatic EYES: conjunctiva pink without discharge, no external redness or swelling. EARS: no external swelling, no external redness NOSE: atraumatic, no external swelling MOUTH/THROAT: mucous membranes moist and pink, posterior pharynx without erythema, swelling, exudate. No trismus or drooling. NECK: soft, supple, full range of motion, no meningismus. CHEST: no distress, lungs clear and equal throughout. No wheezing, rales, rhonchi. CARDIAC: regular rate and rhythm, no murmur, normal capillary refill, normal pulses. No peripheral edema noted. ABDOMEN: Soft, nontender. BACK: full range of motion, no CVA tenderness. EXTREMITIES: full range of motion of all extremities. Patient with second- degree burn noted to the right hand wrist and distal forearm. This is approximately 1% body percentage. It is a second-degree burn with sloughed skin. No surrounding redness, no drainage. Full range of motion. Normal pulse and sensation distally. NEURO: alert and oriented x 3, no focal deficits, full range of motion of all extremities. PYSCH: appropriate mood, affect. Patient is cooperative. SKIN: pink, warm, dry, no rash. Course - Re-evaluation Re-evalutation: 03/03/19 14:02 Call has been placed to [facility] transfer center to discuss the case with the burn doctor there to determine whether the patient needs to be seen there today or not. Currently awaiting callback. Patient has been given pain medication and tetanus, currently awaiting return phone call. 03/03/19 15:[address] Aquilino Carrillo, burn surgeon at [facility]. He recommends that the patient be transferred to their facility for further evaluation. I discussed this with the patient who agrees. She states that she is having worsening pain. I have ordered her a dose of IM morphine and Zofran. She states that she has tolerated this in the past. We have placed a wet gauze dressing on to the burn. Patient is now noted to have some redness and swelling to the dorsum of the hand as well as the fingers. This was not present on initial exam. The burn does seem to be somewhat worse than initially thought. Do believe that it would be beneficial for the patient to be seen and evaluated by burn today. Patient was given the option for private vehicle transportation versus EMS. She is having no airway compromise and is stable, I do believe that is safe for her to travel by private car if she chooses to do so which she has. We will continue to monitor the patient while we are awaiting bed assignment from [facility] and patient will be transferred accordingly. 03/03/19 16:34 Patient states that she is feeling better at this time. She is resting comfortably at this time. We have gotten a room assignment at [facility]. Patient will be traveling by private car. She has been giving written directions on how to get to the hospital. She is instructed to drive immediately there. Verbalized understanding of this. - Vital Signs Vital signs: Temp Pulse Resp BP Pulse Ox 98.0 F 109 H 18 154/135 H 100 03/03/19 13:25 03/03/19 13:25 03/03/19 13:25 03/03/19 13:25 03/03/19 13:25 Discharge - Discharge Clinical Impression: Second degree burn of right wrist and hand Qualifiers: Encounter type: initial encounter Qualified Code(s): T23.271A - Burn of second degree of right wrist, initial encounter; T23.201A - Burn of second degree of right hand, unspecified site, initial encounter First degree burn of right hand Qualifiers: Encounter type: initial encounter Burn of hand location: multiple fingers excluding thumb Qualified Code(s): T23.131A - Burn of first degree of multiple right fingers (nail), not including thumb, initial encounter Condition: Stable Disposition: [place] Referrals: KAROLINE EWING MD [Primary Care Provider] - Follow up as needed
[2019-03-03] MEDS ORDERED: MORPHINE SULFATE 10 MG/ML INJ IM ONE (15:11)
[2019-03-03] MEDS ORDERED: ONDANSETRON 4 MG TAB.RAPDIS PO ONE ×2 (15:11→17:06)
[2019-03-03 17:20] VITALS: BP 154/102
== END 2019-03-03 17:22 | disposition short-term general hospital (02) ==
LOC: ER 13:21
DX: T23.131A Burn of first degree of multiple right fingers (nail), not including thumb, initial encounter (principal); T23.271A Burn of second degree of right wrist, initial encounter; X10.0XXA Contact with hot drinks, initial encounter; Y99.0 Civilian activity done for income or pay; T31.0 Burns involving less than 10% of body surface; Z88.6 Allergy status to analgesic agent; Z23 Encounter for immunization; F17.200 Nicotine dependence, unspecified, uncomplicated
CPT/HCPCS: 99283; 96372; 90471; 90715; S0119; J2270

== ENCOUNTER → 2019-04-09 | Outpatient (CLI) | payer MEDICAID ==
--- NOTE | 2019-04-09 14:11 | RADIOLOGY REPORT (SQ) ---
EXAM DESCRIPTION: U/S OB TRANSVAGINAL W/O DOP COMPLETED DATE/TIME: 04/09/2019 1:52 pm REASON FOR STUDY: (Z34.81) ENCOUNTER FOR SUPRVSN OF NORMAL , FIRST TRIMESTER Z34.[address] FOR SUPRVSN OF NORMAL , FIRST TRIM COMPARISON: None. TECHNIQUE: Transvaginal static and realtime grayscale images acquired of the pelvis. Additional tarun cted spectral and color Doppler images recorded. All images stored on PACs. CG: Not available. CLINICAL DATES: AROLDO: 11/25/2019. EGA: 7 weeks 1 day LIMITATIONS: None. FINDINGS: FETUS: Single Living intrauterine . ULTRASOUND EGA: 7 weeks 3 days ULTRASOUND AROLDO: 11/23/2019 EFW: Not applicable less than 20 weeks. CRL: 1.26 cm FHR: 163 beats per minute. AMNIOTIC FLUID: Adequate amount. PLACENTA: Not yet developed due to early gestation. SUBCHORIONIC BLEED: No. SIZE OF BLEED: Not applicable. UTERUS: Two hypoechoic slightly irregular shaped areas in the uterus, the larger one measures 2.4 x 2.4 x 2.5 cm considerations for these findings include uterine fibroids. CERVICAL LENGTH: 2.3 cm Closed. RIGHT ADNEXA: The right ovary measures 3.5 x 1.9 x 1.8 cm. Normal ovary with normal vascular flow. No adnexal free fluid. No adnexal masses. LEFT ADNEXA: The left ovary measures 3.5 x 2.5 x 2.4 cm. A complex cyst measures 2.2 x 2.0 x 2.1 cm , may represent corpus luteum cyst. No adnexal free fluid. No adnexal masses. FREE FLUID: Small amount of fluid in the cul-de-sac. OTHER: No other significant finding. IMPRESSION: LIVING INTRAUTERINE . EGA: 7 weeks 3 days At least two uterine fibroids. Small complex left ovarian corpus luteum cyst. Trimester of : First - 0 to 13 weeks. TECHNICAL DOCUMENTATION: JOB ID: [id number] Dr[address] Tariff- All Rights Reserved rev Reading location - IP/workstation name: [email or web address]
== END ==
LOC: RAD 13:09
PROVIDERS: ATTEND Midwife
DX: O34.11 Maternal care for benign tumor of corpus uteri, first trimester (principal); D25.9 Leiomyoma of uterus, unspecified; O34.81 Maternal care for other abnormalities of pelvic organs, first trimester; N83.12 Corpus luteum cyst of left ovary; Z3A.01 Less than 8 weeks gestation of pregnancy
CPT/HCPCS: 76817

== ENCOUNTER 2019-11-23 05:59 | Inpatient (IN) | payer MEDICAID ==
[2019-11-23] MEDS ORDERED: OXYTOCIN/NORMAL SALINE 20 UNIT/1,000 ML RTUINJ IV PRN ×2 (06:13→14:13)
[2019-11-23] MEDS ORDERED: RINGERS SOLUTION,LACTATED 1,000 ML IV PRN (06:13)
[2019-11-23] MEDS ORDERED: RINGERS SOLUTION,LACTATED 300 ML IV ONE (06:13)
[2019-11-23] MEDS ORDERED: OXYTOCIN 10 UNIT/ML VIAL ONE (06:20)
[2019-11-23] MEDS ORDERED: MISOPROSTOL 0.2 MG TABLET ONE (06:20)
[2019-11-23] MEDS ORDERED: LIDOCAINE 1% INJ-PF (10 MG/ML) 30 ML SDV ONE (06:21)
[2019-11-23] MEDS ORDERED: OXYTOCIN/NORMAL SALINE 20 UNIT/1,000 ML RTUINJ ONE (06:21)
[2019-11-23] MEDS ORDERED: PENICILLIN G-K 5 MILLION UNIT VIAL ONE ×2 (06:21→11:26)
[2019-11-23 06:32] LABS: APPEARANCE,URINE CLOUDY; BILIRUBIN,URINE NEGATIVE (NEGATIVE); COLOR,URINE YELLOW; GLUCOSE, URINE NEGATIVE (NEGATIVE); KETONES,URINE NEGATIVE (NEGATIVE); LEUKOCYTE ESTERASE,URINE TRACE (NEGATIVE); NITRITE,URINE NEGATIVE (NEGATIVE); PROTEIN,URINE 100 mg/dL (NEGATIVE); URINE SPECIFIC GRAVITY 1.023
[2019-11-23 06:49] LABS: URINE AMPHETAMINES SCREEN NEGATIVE; URINE BARBITURATES SCREEN NEGATIVE; URINE BENZODIAZEPINES SCREEN NEGATIVE; URINE COCAINE SCREEN NEGATIVE; URINE METHADONE SCREEN NEGATIVE; URINE PHENCYCLIDINE SCREEN NEGATIVE
[2019-11-23 06:53] LABS: URINE MARIJUANA (THC) SCREEN UNCONFIRMED POSITIVE
[2019-11-23 06:58] LABS: ABSOLUTE BASOPHILS # (AUTO) 0.1 10^3/uL (0.0-0.2); ABSOLUTE EOSINOPHILS # (AUTO) 0.2 10^3/uL (0.0-0.6); ABSOLUTE LYMPHOCYTES (AUTO) 2.6 10^3/uL (0.5-4.7); ABSOLUTE MONOCYTES (AUTO) 0.6 10^3/uL (0.1-1.4); BASOPHILS % (AUTO) 0.6 % (0-2); EOSINOPHILS % (AUTO) 1.9 % (0-6); HEMATOCRIT 26.8 % (36.0-47.0); HEMOGLOBIN 9.1 g/dL (12.0-15.5); LYMPHOCYTES % (AUTO) 26.9 % (13-45); MEAN CORPUSCULAR HGB CONC 34.1 g/dL (32.0-36.0); MEAN CORPUSCULAR VOLUME 85 fl (80-97); MONOCYTES % (AUTO) 6.8 % (3-13); PLATELET COUNT 249 10^3/uL (150-450); RED BLOOD COUNT 3.16 10^6/uL (3.72-5.28); RED CELL DISTRIBUTION WIDTH 15.9 % (11.5-14.0); SEGMENTED NEUTROPHILS % (AUTO) 63.8 % (42-78); TOTAL CELLS COUNTED % (AUTO) 100 %; WHITE BLOOD COUNT 9.5 10^3/uL (4.0-10.5)
[2019-11-23] MEDS ORDERED: PENICILLIN G POTASSIUM 5,000,000 UNIT in DEXTROSE 5%-WATER 100 ML IV ONE (07:00)
--- NOTE | 2019-11-23 07:44 | Admission Physical ---
Datetime Report Generated by CPN: 11/23/2019 07:43 CURRENT ADMISSION Chief Complaint: Scheduled Induction of Labor Indication for Induction: Chronic Secondary HTN (Specify Cause); Maternal Diabetes Admit Impression : Term, Intrauterine ; Induction of Labor Admit Plan: Admit to Unit; Initiate Labor Induction Protocol ALLERGIES Medication Allergies: Yes Medication Allergies: oxycodone HCl (11/23/2019); hydrocodone (11/23/2019) Latex: No Latex Allergies OBSTETRICAL HISTORY EDC: 11/27/2019 00:00 : 4 Para: 3 Term: 3 : 0 SAB: 0 IAB: 0 Ectopic: 0 Livin Cesareans: 0 VBACs: 0 Multiple Births: 0 Gestational Diabetes: Yes Rh Sensitization: No Incompetent Cervix: No KATIE: No Infertility: No ART Treatment: No Uterine Anomaly: No IUGR: No Hx Previous C/S: No Macrosomia: No Hx Loss/Stillborn: No PIH: No Hx : No Placenta Previa/Abruption: No Depression/PP Depression: Yes PTL/PROM: No Post Hemorrhage: No Current Procedures: Ultrasound Obstetrical History Comments: g1- baby boy g2- baby girl [id number]- baby boy [id number]- baby girl SEE RECORDS Alcohol: No Marijuana : Yes Cocaine: No Other Illicit Drugs: No Cigarettes: Current Everyday Smoker. 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: No Heart Disease: No Hosp/Surgery: No Autoimmune Disorder: No Anesthetic Complications: No Kidney Disease: Yes Abnormal Pap Smear: Yes Neuro/Epilepsy: No Psychiatric Disorders: No Other Medical Diseases: No Hepatitis/Liver Disease: No Significant Family History: No Varicosities/Phlebitis: No Trauma/Violence : No Thyroid Dysfunction: No Medical History Comments: 2017- abnormal papsmear- INFECTIOUS HISTORY Gonorrhea: Yes Genital Herpes: No Chlamydia: Yes Tuberculosis: No Syphilis: No Hepatitis: No HIV/AIDS Exposure: No Rash or Viral Illness: No HPV: No Infectious History Comments: ghonorrhea and chlamydia in 2017, trich in current PHYSICAL EXAM General: Normal HEENT: Normal Neurologic: Normal Thyroid: Normal Heart: Normal Lungs: Normal Breast: Normal Back: Normal Abdomen: Normal Genitourinary Exam: Normal Extremities: Normal DTRs: Normal Pelvic Type: Adequate Vital Signs: Reviewed VAGINAL EXAM Dilatation: 2 Effacement: 50 Station: -2 MEMBRANES Pooling: Negative Membranes: Intact FETUS A EGA: 39.3 Monitoring: External US FHR- Baseline: 130 Variability: Moderate 6-25bpm Accelerations: 15X15 Decelerations: None FHR Category: Category I Estimated Weight (gm): 3700 Presentation: Vertex PLANS FOR LABOR AND DELIVERY Labor and Delivery: None Pain Management: Natural Feeding Preference: Breast Benefit of Breast Feed Discussed: Yes Circumcision: N/A INFORMED CONSENT Signature: with User ID: [email or web address]
[2019-11-23] MEDS ORDERED: PENICILLIN G POTASSIUM 2,500,000 UNIT in DEXTROSE 5%-WATER 50 ML IV SCH (11:00)
[2019-11-23 11:25] LABS: ALBUMIN 3.4 g/dL (3.5-5.0); ALKALINE PHOSPHATASE 164 U/L (38-126); ANION GAP 10 (5-19); ASPARTATE AMINO TRANSFERASE 21 U/L (14-36); BILIRUBIN,DIRECT 0.3 mg/dL (0.0-0.4); BILIRUBIN,TOTAL 0.4 mg/dL (0.2-1.3); BLOOD UREA NITROGEN 5 mg/dL (7-20); CALCIUM 9.1 mg/dL (8.4-10.2); CARBON DIOXIDE 19 mmol/L (22-30); CHLORIDE 106 mmol/L (98-107); GLUCOSE 74 mg/dL (75-110); POTASSIUM 4.1 mmol/L (3.6-5.0); TOTAL PROTEIN 6.6 g/dL (6.3-8.2); URIC ACID 2.3 mg/dL (2.5-6.2)
[2019-11-23] MEDS ORDERED: NALBUPHINE HCL INJ 10 MG/1 ML AMPULE ONE (11:44)
[2019-11-23] MEDS ORDERED: NALBUPHINE HCL INJ 10 MG/1 ML AMPULE IV ONE (11:45)
[2019-11-23] MEDS ORDERED: BENZOCAINE/MENTHOL AEROSOL SPRAY 56 ML TOP PRN (14:13)
[2019-11-23] MEDS ORDERED: ZOLPIDEM TARTRATE 5 MG TABLET PO PRN (14:13)
[2019-11-23] MEDS ORDERED: DIBUCAINE 1% OINTMENT 28 GM TP PRN (14:13)
[2019-11-23] MEDS ORDERED: MEASLES,MUMPS&RUBELLA VACC/PF 0.5 ML VIAL SUBCUT PRN (14:13)
[2019-11-23] MEDS ORDERED: DIPH/PERTUSS(ACELL)/TETANUS VAC/PF 0.5 ML SYR (>=10YO) IM PRN (14:13)
--- NOTE | 2019-11-23 15:24 | Delivery Summary ---
Del Sum A-C Datetime Report Generated by CPN: 11/23/2019 15:24 DELIVERY PERSONNEL DELIVERY PERSONNEL: [id number] Delivery Doctor:: Rena Lee CNM Labor and Delivery Nurse:: Natacha Correa RNcooking teacher Nurse:: Norma Soto RN Registered Art Therapist/MACHINIST CLASS B: Bianca Adkins CNA II MATERNAL INFORMATION Delivery Anesthesia: None Medications After Delivery: Pitocin Bolus-Please Comment; Pitocin Drip 20 Units/1000ml NSS Delivery QBL: 206 Maternal Complications: None Provider Comments: SVDVF over intact perineum, JOHNATHAN to OA, vigorous, to mothers abd with spont cry. Cord clamped x 2 cut per pt. Placenta spont via guerrier, intact. Fundus firm with massage, pitocin started. Mother and stable. Superficial lacs to bilat labia, no repairs needed. Apgars 8,9. LABOR SUMMARY EDC: 11/27/2019 00:00 No. Babies in Womb: 1 Attempted: No Labor Anesthesia: IV Sedation LABOR INFORMATION Reason for Induction: Maternal Diabetes Onset of Labor: 11/23/2019 09:30 Complete Dilatation: 11/23/2019 13:40 Oxytocin: Induction Group B Beta Strep: Positive Antibiotics # of Doses: 2 Antibiotics Time of Last Dose: 1134 Name of Antibiotic Given: Penicillin Steroids Given: None Reason Steroids Not Administered: Not Applicable MEMBRANES Membranes Rupture Method: Spontaneous Rupture of Membranes: 11/23/2019 09:30 Length of Rupture (hr): 4.23 Amniotic Fluid Color: Clear Amniotic Fluid Amount: Moderate Amniotic Fluid Odor: None STAGES OF LABOR Stage 1 hr: 4 Stage 1 min: 10 Stage 2 hr: 0 Stage 2 min: 4 Stage 3 hr: 0 Stage 3 min: 5 Total Time in Labor hr: 4 Total Time in Labor min: 19 VAGINAL DELIVERY Episiotomy: None Laceration #1: None Laceration Extension #1: First Degree Other Laceration: RT LABIAL ABRASION Laceration Repair: Not Applicable Sponge Count Correct: N/A Sharps Count Correct: N/A BABY A INFORMATION Infant Delivery Date/Time: 11/23/2019 13:44 Method of Delivery: Vaginal Born in Route : No (Annotations: Data stored by [facility] on behalf of user) : N/A Forceps: N/A Vacuum Extraction: N/A Shoulder Dystocia : No PRESENTATION/POSITION BABY A Presentation: Cephalic Cephalic Presentation: Vertex Vertex Position: Right Occipital Anterior Breech Presentation: N/A PLACENTA INFORMATION BABY A Placenta Delivery Time : 11/23/2019 13:49 Placenta Method of Delivery: Spontaneous Placenta Status: Delivered SCORES BABY A Heart Rate 1 min: >100 bpm Resp Effort 1 min: Good Cry Reflex Irritability 1 min: Cough or Sneeze or Pulls Away Muscle Tone 1 min: Active Motion Color 1 min: Blue/Pale Resuscitation Effort 1 min: Tactile Stimulation SCORE 1 MIN: 8 Heart Rate 5 min: >100 bpm Resp Effort 5 min: Good Cry Reflex Irritability 5 min: Cough or Sneeze or Pulls Away Muscle Tone 5 min: Active Motion Color 5 min: Body [place], Extremities Blue Resuscitation Effort 5 min: Tactile Stimulation SCORE 5 MIN: 9 INFANT INFORMATION BABY A Gestational Age at Delivery: 39.3 Gestational Status: Full Term- 39- 40.6 Weeks Outcome : Liveborn (Annotations: Data stored by CPN on behalf of user) Infant Condition : Stable Sex: Female (Annotations: Data stored by CPN on behalf of user) IDENTIFICATION BABY A Verification Date/Time: 11/23/2019 14:53 ID Band Number: [id number] Mother's Name Verified: Yes Infant RN Verifying Infant: Chilango CorreaRERE Additional Verifying Personnel: Laila Adkins CNA WEIGHT/LENGTH BABY A Birthweight (gm): 3488 Infant Weight (lb): 7 Infant Weight (oz): 11 Length (in): 19.75 Length (cm): 50.17 CORD INFORMATION BABY A No. Cord Vessels: 3 Nuchal Cord : N/A Cord Blood Taken: Yes-For Eval (Mom's Blood Type - or O+) Suction: None ASSESSMENT BABY A Infant Complications: None Physical Findings at Delivery: Within Normal Limits Infant Respirations: Appears Normal Skin to Skin: No Manager Group Home/ALS Called : No Infant Care By: Adeola CORREA RN Transferred To: Remains with Mother BABY B INFORMATION : N/A SIGNATURES Assignment: Meagan Pearl MD Signature: with User ID: [email or web address] : with User ID: [email or web address] : I was personally available for consultation and serving as supervising physician for the MLP.
[2019-11-23] MEDS ORDERED: IBUPROFEN 800 MG TABLET ONE (15:25)
[2019-11-23] MEDS: DOCUSATE SODIUM 100 MG CAPSULE PO SCH (20:26)
[2019-11-23] MEDS: FERROUS SULFATE 325 MG TABLET PO SCH (20:27)
[2019-11-23] MEDS ORDERED: ACETAMINOPHEN 325 MG TABLET PO PRN (20:57)
[2019-11-23] MEDS: IBUPROFEN 800 MG TABLET PO SCH (21:42)
[2019-11-24] MEDS: IBUPROFEN 800 MG TABLET PO SCH ×3 (05:03→18:17)
[2019-11-24 06:39] LABS: HEMATOCRIT 26.1 % (36.0-47.0); HEMOGLOBIN 8.8 g/dL (12.0-15.5); MEAN CORPUSCULAR HEMOGLOBIN 28.5 pg (27.0-33.4); MEAN CORPUSCULAR HGB CONC 33.7 g/dL (32.0-36.0); MEAN CORPUSCULAR VOLUME 85 fl (80-97); PLATELET COUNT 212 10^3/uL (150-450); RED BLOOD COUNT 3.09 10^6/uL (3.72-5.28); RED CELL DISTRIBUTION WIDTH 15.5 % (11.5-14.0); WHITE BLOOD COUNT 11.4 10^3/uL (4.0-10.5)
[2019-11-24] MEDS: FERROUS SULFATE 325 MG TABLET PO SCH ×2 (09:39→17:39)
[2019-11-24] MEDS: PRENATAL VITAMIN W DHA CAPSULE PO SCH (09:39)
[2019-11-24] MEDS: SENNOSIDES/DOCUSATE 8.6-50 MG 1 EACH TABLET PO SCH (09:39)
[2019-11-24] MEDS: DOCUSATE SODIUM 100 MG CAPSULE PO SCH ×2 (09:39→17:39)
--- NOTE | 2019-11-24 11:18 | PDOC PROGRESS REPORT ---
Subjective-OB Progress Note for:: 11/24/19 Subjective: 29yo s/p ppd1. Ambulating, voiding and passing gas without difficulty. Reports pain well controlled with medication. No concerns today Physical Exam (OB) Vital Signs: Temp Pulse Resp BP Pulse Ox 97.8 F 76 22 H 123/74 99 11/24/19 08:00 11/24/19 08:00 11/24/19 08:00 11/24/19 08:00 11/24/19 08:00 Intake & Output 11/23/19 11/24/19 11/25/19 06:59 06:59 06:59 Intake Total 240 500 Balance 240 500 Weight 104.2 kg - General General Appearance: Appears well In distress: None - PIH/Pre-Eclampsia Headache: Absent Epigastric Pain: No Visual Changes: No - Episiotomy/Laceration Site Condition: Well Approximated - Lochia Lochia Amount: Scant < 10 ml Lochia Color: Rubra/Red - Abdomen Description: Soft Hernia Present: No Fundal Description: Firm, Midline Fundal Height: u/u - u/2 - Respiratory Respiratory Status: No respiratory distress - Extremities Upper extremity: Normal inspection Lower extremities: Normal inspection - Neurological Cognition: Normal Orientation: AAOx4 - Psychological Associated symptoms: Normal affect, Normal mood Objective-Diagnostic Laboratory: 11/24/19 06:22 11/23/19 10:31 11/23/19 11/24/19 10:31 06:22 WBC 11.4 H RBC 3.09 L Hgb 8.8 L Hct 26.1 L MCV 85 MCH 28.5 MCHC 33.7 RDW 15.5 H Plt Count 212 Sodium 135.2 L Potassium 4.1 Chloride 106 Carbon Dioxide 19 L Anion Gap 10 BUN 5 L Creatinine 0.46 L Est GFR ( Amer) > 60 Glucose 74 L Uric Acid 2.3 L Calcium 9.1 Total Bilirubin 0.4 AST 21 Alkaline Phosphatase 164 H Total Protein 6.6 Albumin 3.4 L Assessment and Plan(PN) - Assessment and Plan (1) Anemia complicating , third trimester Is this a current diagnosis for this admission?: Yes Plan: increase dietary iron and FeSO4 BID (2) Drug use affecting Qualifiers: Trimester: unspecified trimester Qualified Code(s): O99.320 - Drug use complicating , unspecified trimester Is this a current diagnosis for this admission?: Yes Plan: cessation encouraged (3) Current every day smoker Is this a current diagnosis for this admission?: Yes Plan: cessation encouraged (4) Labial abrasion, delivered, current hospitalization Is this a current diagnosis for this admission?: Yes Plan: hemostatic, monitor for s/s of infection (5) Trichomonal vaginitis during Qualifiers: Trimester: unspecified trimester Qualified Code(s): O23.599 - Infection of other part of genital tract in , unspecified trimester; A59.01 - Trichomonal vulvovaginitis Is this a current diagnosis for this admission?: Yes Plan: treated in (6) Chronic hypertension affecting Is this a current diagnosis for this admission?: Yes Plan: vss, contine to monitor (7) Gestational diabetes mellitus (GDM) Qualifiers: Gestational diabetes mellitus control: diet-controlled Trimester: third trimester Qualified Code(s): O24.410 - Gestational diabetes mellitus in , diet controlled Is this a current diagnosis for this admission?: Yes Plan: fasting at pp visit (8) Limited care in third trimester Is this a current diagnosis for this admission?: Yes Plan: delivered, discharge planning consult placed (9) Delivery normal Is this a current diagnosis for this admission?: Yes Plan: routine pp care (10) GBS (group B Streptococcus carrier), +RV culture, currently Is this a current diagnosis for this admission?: Yes Plan: treated in labor - Time Spent with Patient Time with patient: Less than 15 minutes Smoking Education Provided: Over 3 minutes - Disposition Anticipated Discharge: Home Within: within 24 hours
[2019-11-25] MEDS: IBUPROFEN 800 MG TABLET PO SCH ×2 (01:02→10:40)
[2019-11-25] MEDS: SENNOSIDES/DOCUSATE 8.6-50 MG 1 EACH TABLET PO SCH (10:40)
[2019-11-25] MEDS: FERROUS SULFATE 325 MG TABLET PO SCH (10:40)
[2019-11-25] MEDS: DOCUSATE SODIUM 100 MG CAPSULE PO SCH (10:40)
[2019-11-25] MEDS: PRENATAL VITAMIN W DHA CAPSULE PO SCH (10:40)
--- NOTE | 2019-11-25 14:05 | PDOC DISCHARGE SUMMARY ---
Impression - Admit/DC Date/PCP Admission Date/Primary Care Provider: 11/23/19 05:59 GWEN DIXON MD Discharge Date: 11/25/19 - Assessment Summary: Patient delivered over an intact perineum vaginally on the . Please see the delivery summary for further details. She did well and is ready to go home today. Her condition on discharge is good. I will start her on some hydrochlorothiazide for chronic hypertension. We will see her back in the office in 2 weeks. - Additional Information Resuscitation Status: Full Code Discharge Diet: Regular Discharge Activity: Balance Activity w/Rest, Pelvic Rest, Slowly Increase Activity Referrals: GWEN DIXON MD [Primary Care Provider] - Home Medications: No Home Medications 03/03/19 History of Present Illiness History of Present Illness: BRANNON RAYMOND is a 29 year old female Physical Exam - Physical Exam Vital Signs: Temp Pulse Resp BP Pulse Ox 97.4 F 78 16 153/96 H 100 11/25/19 11:23 11/25/19 11:23 11/25/19 11:23 11/25/19 11:23 11/25/19 11:23 Intake & Output 11/24/19 11/25/19 11/26/19 06:59 06:59 06:59 Intake Total 240 500 480 Balance 240 500 480 Results Laboratory Results: WBC 11.4 10^3/uL (4.0-10.5) H 11/24/19 06:22 RBC 3.09 10^6/uL (3.72-5.28) L 11/24/19 06:22 Hgb 8.8 g/dL (12.0-15.5) L 11/24/19 06:22 Hct 26.1 % (36.0-47.0) L 11/24/19 06:22 MCV 85 fl (80-97) 11/24/19 06:22 MCH 28.5 pg (27.0-33.4) 11/24/19 06:22 MCHC 33.7 g/dL (32.0-36.0) 11/24/19 06:22 RDW 15.5 % (11.5-14.0) H 11/24/19 06:22 Plt Count 212 10^3/uL (150-450) 11/24/19 06:22 Lymph % (Auto) 26.9 % (13-45) 11/23/19 06:39 [facility] % (Auto) 6.8 % (3-13) 11/23/19 06:39 Eos % (Auto) 1.9 % (0-6) 11/23/19 06:39 Baso % (Auto) 0.6 % (0-2) 11/23/19 06:39 Absolute Neuts (auto) 6.0 10^3/uL (1.7-8.2) 11/23/19 06:39 Absolute Lymphs (auto) 2.6 10^3/uL (0.5-4.7) 11/23/19 06:39 Absolute Monos (auto) 0.6 10^3/uL (0.1-1.4) 11/23/19 06:39 Absolute Eos (auto) 0.2 10^3/uL (0.0-0.6) 11/23/19 06:39 Absolute Basos (auto) 0.1 10^3/uL (0.0-0.2) 11/23/19 06:39 Seg Neutrophils % 63.8 % (42-78) 11/23/19 06:39 Sodium 135.2 mmol/L (137-145) L 11/23/19 10:31 Potassium 4.1 mmol/L (3.6-5.0) 11/23/19 10:31 Chloride 106 mmol/L (98-107) 11/23/19 10:31 Carbon Dioxide 19 mmol/L (22-30) L 11/23/19 10:31 Anion Gap 10 (5-19) 11/23/19 10:31 BUN 5 mg/dL (7-20) L 11/23/19 10:31 Creatinine 0.46 mg/dL (0.52-1.25) L 11/23/19 10:31 Est GFR ( Amer) > 60 (>60) 11/23/19 10:31 Est GFR (MDRD) Non-Af > 60 (>60) 11/23/19 10:31 Glucose 74 mg/dL (75-110) L 11/23/19 10:31 Uric Acid 2.3 mg/dL (2.5-6.2) L 11/23/19 10:31 Calcium 9.1 mg/dL (8.4-10.2) 11/23/19 10:31 Total Bilirubin 0.4 mg/dL (0.2-1.3) 11/23/19 10:31 Direct Bilirubin 0.3 mg/dL (0.0-0.4) 11/23/19 10:31 Neonat Total Bilirubin Not Reportable 11/23/19 10:31 Neonat Direct Bilirubin Not Reportable 11/23/19 10:31 Neonat Indirect Bili Not Reportable 11/23/19 10:31 AST 21 U/L (14-36) 11/23/19 10:31 ALT 11 U/L (<35) 11/23/19 10:31 Alkaline Phosphatase 164 U/L (38-126) H 11/23/19 10:31 Lactate Dehydrogenase 160 U/L (120-246) 11/23/19 10:31 Total Protein 6.6 g/dL (6.3-8.2) 11/23/19 10:31 Albumin 3.4 g/dL (3.5-5.0) L 11/23/19 10:31 Urine Color YELLOW 11/23/19 06:10 Urine Appearance CLOUDY 11/23/19 06:10 Urine pH 7.0 (5.0-9.0) 11/23/19 06:10 Ur Specific Randle 1.023 11/23/19 06:10 Urine Protein 100 mg/dL (NEGATIVE) H 11/23/19 06:10 Urine Glucose (UA) NEGATIVE mg/dL (NEGATIVE) 11/23/19 06:10 Urine Ketones NEGATIVE mg/dL (NEGATIVE) 11/23/19 06:10 Urine Blood NEGATIVE (NEGATIVE) 11/23/19 06:10 Urine Nitrite NEGATIVE (NEGATIVE) 11/23/19 06:10 Urine Bilirubin NEGATIVE (NEGATIVE) 11/23/19 06:10 Urine Urobilinogen 2.0 mg/dL (<2.0) H 11/23/19 06:10 Ur Leukocyte Esterase TRACE (NEGATIVE) H 11/23/19 06:10 Urine Ascorbic Acid 40 (NEGATIVE) H 11/23/19 06:10 Urine Opiates Screen NEGATIVE 11/23/19 06:10 Urine Methadone Screen NEGATIVE 11/23/19 06:10 Ur Barbiturates Screen NEGATIVE 11/23/19 06:10 Ur Phencyclidine Scrn NEGATIVE 11/23/19 06:10 Ur Amphetamines Screen NEGATIVE 11/23/19 06:10 U Benzodiazepines Scrn NEGATIVE 11/23/19 06:10 Urine Cocaine Screen NEGATIVE 11/23/19 06:10 U Marijuana (THC) Screen UNCONFIRMED POSITIVE 11/23/19 06:10 RPR NONREACTIVE (NONREACTIVE) 11/23/19 06:39 Blood Type O POSITIVE 11/23/19 06:39 Antibody Screen NEGATIVE 11/23/19 06:39 Stroke Is this a Stroke Patient?: No Acute Heart Failure - Is this a Heart Failure Patient?: No
[2019-11-25 14:22] VITALS: BP 146/96
== END 2019-11-25 14:52 | disposition home or self-care (01) | DRG 806 ==
LOC: LR 05:59 → 2S 20:08
PROVIDERS: ADMIT Obstetrics & Gynecology; ATTEND Obstetrics & Gynecology
PROC: 10E0XZZ Delivery of Products of Conception, External Approach (ICD-10-PCS; principal; 2019-11-23)
PROC: 3E033VJ Introduction of Other Hormone into Peripheral Vein, Percutaneous Approach (ICD-10-PCS; 2019-11-23)
DX: O24.420 Gestational diabetes mellitus in childbirth, diet controlled (principal); O10.92 Unspecified pre-existing hypertension complicating childbirth; Z37.0 Single live birth; O99.324 Drug use complicating childbirth; O98.32 Other infections with a predominantly sexual mode of transmission complicating childbirth; O99.834 Other infection carrier state complicating childbirth; A59.01 Trichomonal vulvovaginitis; O99.02 Anemia complicating childbirth; O99.824 Streptococcus B carrier state complicating childbirth; O99.334 Smoking (tobacco) complicating childbirth; F17.210 Nicotine dependence, cigarettes, uncomplicated; Z3A.39 39 weeks gestation of pregnancy; Z88.6 Allergy status to analgesic agent
CPT/HCPCS: 36415; 80053; 80307; 80349; 81005; 83615; 84550; 85025; 85027; 86592; 86850; 86900; 86901; 90715; G0480; J2300; J2540; J2590; J3490; J7060

== ENCOUNTER → 2020-05-09 | Outpatient (CLI) | payer MEDICAID ==
[2020-05-09 14:10] VITALS: BP 150/100
--- NOTE | 2020-05-09 14:10 | ER RDC ASSESSMENT REPORT ---
Intake - In the Last 14 days Have you traveled outside [place]?: No Have you been in close contact with someone CONFIRMED: No Worked in Healthcare?: No - Symptoms Subjective Fever([place] feverish): No Chills: No Muscule Aches: No Runny Nose: Yes Sore Throat: Yes Cough (New or worsening chronic cough): Yes Shortness of breath: No Nausea or Vomiting: Yes --How many day(s)?: Vomited on Friday one time with coughing Headache: Yes Abdominal Pain: No Diarrhea(3 or more loose stools in last 24 hours): No - Do you have any of the following Chronic lung disease: Asthma or emphysema or COPD: No Cystic Fibrosis: No Diabetes: No High Blood Pressure: Yes Cardiovascular Disease: Yes Chronic Kidney Disease: No Chronic Liver Disease: No Chronic blood disorder like Sickle Cell Disease: No Weak immune system due to disease or medication: No Neurologic condition that limits movement: No Developmental delay - Moderate to Severe: No Recent (within past 2 weeks) or current : No Morbid Obesity (>100 pounds over ideal weight): No Obesity Comment: Height 5 feet 7 inches weight 226 pounds - Objective Temperature: 99.7 F Pulse Rate: 117 Respiratory Rate: 20 Blood Pressure: 150/100 O2 Sat by Pulse Oximetry: 99 Objective: Given above, testing performed: If Testing Performed: Test Specimen Type Sent to General - General Information source: Patient Notes: Patient here at [facility] for COVID testing started having symptoms on Friday, 05 May with sore throat runny nose and a cough did vomit on Friday 1 time but says it was probably from cough. Patient does smoke a half a pack a day does have a history of high blood pressure that she did not take medication for today does not have a PCP to follow her chronic blood pressure problem. - Related Data Allergies/Adverse Reactions: hydrocodone [From Vicodin] Allergy (Mild, Verified 11/23/19 11:47) VOMITING oxycodone HCl [From Percocet] Allergy (Mild, Verified 11/23/19 11:48) Pruritis Past Medical History - General Information source: Patient - Social History Smoking Status: Current Every Day Smoker Cigarette use (# per day): Yes - 1/2 pack per day Family History: Reviewed & Not Pertinent - Past Medical History Cardiac Medical History: Reports: Hx Hypertension - stopped taking medications Neurological Medical History: Reports: Hx Migraine Renal/ Medical History: Denies: Hx Peritoneal Dialysis Physical Exam - General General appearance: Appears well, Alert In distress: None Notes: PHYSICAL EXAMINATION: GENERAL: Well-appearing and in no acute distress. HEAD: Atraumatic, normocephalic. EYES: sclera anicteric, conjunctiva are normal. ENT: nares patent. Moist mucous membranes. NECK: Normal range of motion, supple without lymphadenopathy LUNGS: CTAB and equal. No wheezes rales or rhonchi. Resp even and unlabored. lung sounds clear. HEART: Regular rate and rhythm without murmurs ABDOMEN: Soft, nontender, normal bowel sounds, no guarding. EXTREMITIES: No cyanosis. NEUROLOGICAL: Normal speech. Normal gait. PSYCH: Normal mood, normal affect. SKIN: Warm, Dry, normal turgor, Diagnostic Results Laboratory Results: Patient informed of negative rapid strep and negative rapid flu results pending strep culture pending COVID testing results. Patient provided instructions regarding COVID to include: As a person under investigation for Covid 19, the [place] department of Health and Human Services, division of public health advises you to adhere to the following guidance until your test results are reported to you. If your test result is positive, you will receive additional information from your provider and your local health department at th at time. Remain at home until you are cleared by the health provider or public health authorities. Keep a log of visitors to your home, notify any visitors to your home of your isolation status. If you plan to move to a new address or leave the [facility], notify the local health department in your County. Call your doctor or seek care if you have an urgent medical need. Before seeking medical care, call ahead to get instructions from the provider before arriving at the medical office clinic or hospital. Notify them that you are being tested for the virus that causes Covid 19 so that arrangements can be made, as necessary, to prevent transmission to others in the healthcare setting. Next, notify the local health department in your county. If a medical emergency arises and you need to call 911, inform the first responders that you are being tested for the virus that causes Covid 19. Next, notify the local health department in your county. Patient Education/Counseling Counseling/Education: Patient presents with upper respiratory symptoms worrisome for possible Covid 19. Patient does not have emergency worring symptoms such as difficulty breathing, shortness of breath, chest pain, pressure, confusion or cyanosis. Patient appears suitable for discharge. Patient instructed to follow-up with urgent care or to ED for persistent or worsening symptoms. patient's vital signs are stable and patient is nontoxic in appearance. Good return precautions have been discussed with patient, patient verbalized understanding and is agreeable with discharge plan of care at this time. RDC Discharge - Discharge Clinical Impression: COVID - 19 SCREENING Condition: Stable Disposition: Home; Selfcare
[2020-05-09 15:02] LABS: A TYPE INFLUENZA AG NEGATIVE (NEGATIVE); B INFLUENZA AG NEGATIVE (NEGATIVE)
== END ==
LOC: RDC 12:29
PROVIDERS: ATTEND Nurse Practitioner Family
DX: Z20.828 Contact with and (suspected) exposure to other viral communicable diseases (principal); R05 Cough; J02.9 Acute pharyngitis, unspecified; R09.89 Other specified symptoms and signs involving the circulatory and respiratory systems; R11.0 Nausea; R51 Headache; I10 Essential (primary) hypertension; F17.210 Nicotine dependence, cigarettes, uncomplicated; Z88.6 Allergy status to analgesic agent
CPT/HCPCS: 87070; 87880; 87635; 87804; C9803; 99201; 99211

== ENCOUNTER 2020-09-18 08:24 | Emergency (ER) | payer MEDICAID ==
[2020-09-18 08:33] VITALS: BP 186/130
--- NOTE | 2020-09-18 09:13 | ER Document Report ---
ED Medical Screen (RME) - General Stated Complaint: RIGHT EYE PAIN/VISION ISSUES Time Seen by Provider: 09/18/20 09:04 Notes: Patient is a 31-year-old female with a history of anemia who presents emergency department with a chief complaint of right eye blurriness. Patient states that a few months ago, she got poked her right eye. Ever since then she has had on and off eye blurriness. This morning she woke up and had increased blurriness. Patient is supposed be on blood pressure medication, but she is not on her blood pressure medication. Exam: PERRL. Blood pressure 186/130. I have greeted and performed a rapid initial assessment of this patient. A comprehensive ED assessment and evaluation of the patient, analysis of test results and completion of medical decision making process will be conducted by an additional ED providers. TRAVEL OUTSIDE OF THE [place] IN LAST 30 DAYS: No - Related Data Allergies/Adverse Reactions: hydrocodone [From Vicodin] Allergy (Mild, Verified 11/23/19 11:47) VOMITING oxycodone HCl [From Percocet] Allergy (Mild, Verified 11/23/19 11:48) Pruritis Past Medical History - Social History Chew tobacco use (# tins/day): No Frequency of alcohol use: None Drug Abuse: None - Past Medical History Cardiac Medical History: Reports: Hx Hypertension - stopped taking medications Neurological Medical History: Reports: Hx Migraine Renal/ Medical History: Denies: Hx Peritoneal Dialysis - Immunizations Immunizations up to date: Yes Hx Diphtheria, Pertussis, Tetanus Vaccination: Yes Physical Exam - Vital signs Vitals: Temp Pulse Resp BP Pulse Ox 98.4 F 101 H 18 186/130 H 100 09/18/20 08:32 09/18/20 08:32 09/18/20 08:32 09/18/20 08:32 09/18/20 08:32 Course - Vital Signs Vital signs: Temp Pulse Resp BP Pulse Ox 98.4 F 101 H 18 186/130 H 100 09/18/20 08:32 09/18/20 08:32 09/18/20 08:32 09/18/20 08:32 09/18/20 08:32
[2020-09-18 10:05] LABS: HEMATOCRIT 37.2 % (36.0-47.0); HEMOGLOBIN 12.5 g/dL (12.0-15.5); MEAN CORPUSCULAR HGB CONC 33.6 g/dL (32.0-36.0); MEAN CORPUSCULAR VOLUME 83 fl (80-97); PLATELET COUNT 270 10^3/uL (150-450); RED BLOOD COUNT 4.47 10^6/uL (3.72-5.28); RED CELL DISTRIBUTION WIDTH 15.7 % (11.5-14.0); WHITE BLOOD COUNT 4.9 10^3/uL (4.0-10.5)
[2020-09-18 10:21] LABS: ALBUMIN 4.4 g/dL (3.5-5.0); ALKALINE PHOSPHATASE 52 U/L (38-126); ANION GAP 7 (5-19); ASPARTATE AMINO TRANSFERASE 24 U/L (14-36); BILIRUBIN,DIRECT 0.1 mg/dL (0.0-0.4); BILIRUBIN,TOTAL 0.6 mg/dL (0.2-1.3); BLOOD UREA NITROGEN 11 mg/dL (7-20); CARBON DIOXIDE 27 mmol/L (22-30); CHLORIDE 103 mmol/L (98-107); GLUCOSE 94 mg/dL (75-110); POTASSIUM 4.6 mmol/L (3.6-5.0); TOTAL PROTEIN 7.4 g/dL (6.3-8.2)
--- NOTE | 2020-09-18 10:46 | ER Document Report ---
ED Eye Complaint - General Chief Complaint: Eye Problem Stated Complaint: RIGHT EYE PAIN/VISION ISSUES Time Seen by Provider: 09/18/20 09:04 Mode of Arrival: Ambulatory Information source: Patient TRAVEL OUTSIDE OF THE [place] IN LAST 30 DAYS: No - HPI Notes: Patient presents complaints of right eye pain and feeling as if something is in her right eye. She states she has had the sensation on and off for several months. She states it started after her daughter poked her in the eye several months ago. She states she also gets blurry vision and loses her vision occasionally for the last 2 months. She states today it was blurry for several hours but is now back to normal. She denies any new or recent trauma. She denies any other symptoms. She has no left eye symptoms although symptoms are in the right eye. Symptoms have been moderate. They have been intermittent. Nothing appears make them better or worse. - Related Data Allergies/Adverse Reactions: hydrocodone [From Vicodin] Allergy (Mild, Verified 11/23/19 11:47) VOMITING oxycodone HCl [From Percocet] Allergy (Mild, Verified 11/23/19 11:48) Pruritis Past Medical History - General Information source: Patient - Social History Smoking Status: Never Smoker Chew tobacco use (# tins/day): No Frequency of alcohol use: None Drug Abuse: None Family History: Reviewed & Not Pertinent - Past Medical History Cardiac Medical History: Reports: Hx Hypertension - stopped taking medications Neurological Medical History: Reports: Hx Migraine Renal/ Medical History: Denies: Hx Peritoneal Dialysis - Immunizations Immunizations up to date: Yes Hx Diphtheria, Pertussis, Tetanus Vaccination: Yes Review of Systems - Review of Systems Constitutional: denies: Chills, Fever EENT: Eye pain, Blurred vision Cardiovascular: denies: Chest pain, Palpitations Respiratory: denies: Cough, Short of breath -: Yes All other systems reviewed and negative Physical Exam - Vital signs Vitals: Temp Pulse Resp BP Pulse Ox 98.4 F 101 H 18 186/130 H 100 09/18/20 08:32 09/18/20 08:32 09/18/20 08:32 09/18/20 08:32 09/18/20 08:32 Interpretation: Hypertensive - General General appearance: Appears well, Alert - HEENT Head: Normocephalic, Atraumatic Eyes: Normal Conjunctiva: Normal. No: Icteric, Injected, Purulent discharge Cornea: Normal. No: Corneal abrasion, Corneal ulcer, Flourescein stain uptake, Opacified Extraocular movements intact: Yes Eyelashes: Normal Pupils: PERRL Visual acuity- Right eye: 20/30 Visual acuity- Left eye: 20/25-1 Visual acuity- Both eyes: 20/20 Corrective lenses worn: No Lids everted for exam: bilateral: Normal Anterior chamber: Normal Fundascopic: Normal Nerve palsy: No - Respiratory Respiratory status: No respiratory distress Chest status: Nontender Breath sounds: Normal Chest palpation: Normal - Cardiovascular Rhythm: Regular Heart sounds: Normal auscultation Murmur: No - Abdominal Inspection: Normal Distension: No distension Bowel sounds: Normal Tenderness: Nontender Organomegaly: No organomegaly - Back Back: Normal, Nontender - Extremities General upper extremity: Normal inspection, Nontender, Normal color, Normal ROM, Normal temperature General lower extremity: Normal inspection, Nontender, Normal color, Normal ROM, Normal temperature, Normal weight bearing. No: Arcadio's sign - Neurological Neuro grossly intact: Yes Cognition: Normal Orientation: AAOx4 [place] Coma Scale Eye Opening: Spontaneous [place] Coma Scale Verbal: Oriented [place] Coma Scale Motor: Obeys Commands [place] Coma Scale Total: 15 Speech: Normal Motor strength normal: LUE, RUE, LLE, RLE Sensory: Normal - Psychological Associated symptoms: Normal affect, Normal mood - Skin Skin Temperature: Warm Skin Moisture: Dry Skin Color: Normal Course - Vital Signs Vital signs: Temp Pulse Resp BP Pulse Ox 98.4 F 101 H 18 186/130 H 100 09/18/20 08:32 09/18/20 08:32 09/18/20 08:32 09/18/20 08:32 09/18/20 08:32 - Laboratory Result Diagrams: 09/18/20 09:30 09/18/20 09:30 Laboratory results interpreted by me: 09/18/20 09/18/20 09:30 09:30 RDW 15.7 H Sodium 136.7 L Discharge - Discharge Clinical Impression: Visual changes, Acute right eye pain, Uncontrolled hypertension Condition: Stable Disposition: HOME, SELF-CARE Additional Instructions: Please call an eye doctor as soon as possible to arrange follow-up Prescriptions: Amlodipine Besylate [Norvasc 5 mg Tablet] 5 mg PO DAILY #30 tablet Forms: Return to Work, Elevated Blood Pressure Referrals: ERAN KLEIN DO [ACTIVE STAFF] - Follow up tomorrow [facility] [Provider Group] - Follow up in 3-5 days
== END 2020-09-18 10:49 | disposition home or self-care (01) ==
LOC: ER 08:24
DX: H57.11 Ocular pain, right eye (principal); I10 Essential (primary) hypertension; H53.8 Other visual disturbances; H54.61 Unqualified visual loss, right eye, normal vision left eye; Z88.6 Allergy status to analgesic agent; Z88.5 Allergy status to narcotic agent
CPT/HCPCS: 36415; 80053; 85027; 99283

== ENCOUNTER 2020-11-23 21:05 | Emergency (ER) | payer MEDICAID ==
[2020-11-23 21:45] VITALS: BP 159/115
== END 2020-11-23 22:44 | disposition left against medical advice (07) ==
LOC: ER 21:05
DX: Z53.21 Procedure and treatment not carried out due to patient leaving prior to being seen by health care provider (principal)

== ENCOUNTER → 2020-11-24 | Outpatient (CLI) | payer MEDICAID ==
[2020-11-24 12:00] VITALS: BP 145/97
--- NOTE | 2020-11-24 12:00 | ER RDC ASSESSMENT REPORT ---
Intake - In the Last 14 days Have you traveled outside [place]?: No Have you been in close contact with someone CONFIRMED: No Worked in Healthcare?: No - Symptoms Subjective Fever([place] feverish): Yes Chills: Yes Muscule Aches: Yes Runny Nose: Yes Sore Throat: Yes Cough (New or worsening chronic cough): No Shortness of breath: No Nausea or Vomiting: Yes Headache: Yes Abdominal Pain: Yes Diarrhea(3 or more loose stools in last 24 hours): Yes - Do you have any of the following Chronic lung disease: Asthma or emphysema or COPD: No Cystic Fibrosis: No Diabetes: No High Blood Pressure: No Cardiovascular Disease: No Chronic Kidney Disease: No Chronic Liver Disease: No Chronic blood disorder like Sickle Cell Disease: No Weak immune system due to disease or medication: No Neurologic condition that limits movement: No Developmental delay - Moderate to Severe: No Recent (within past 2 weeks) or current : No Morbid Obesity (>100 pounds over ideal weight): No Obesity Comment: Height 5 feet 8 inches weight 230 pounds - Objective Temperature: 98.9 F Pulse Rate: 102 Respiratory Rate: 18 Blood Pressure: 145/97 O2 Sat by Pulse Oximetry: 100 Objective: Given above, testing performed: If Testing Performed: Test Specimen Type Sent to General - General Information source: Patient Notes: Patient here at [facility] for Covid testing patient denies any known positive exposure to Covid that she is aware of. Patient did start to have symptoms 2 days ago which included fever of 102 chills muscle aches congestion nausea headache abdominal pain and diarrhea. Patient does not have any local primary care provider. - Related Data Allergies/Adverse Reactions: hydrocodone [From Vicodin] Allergy (Mild, Verified 11/23/19 11:47) VOMITING oxycodone HCl [From Percocet] Allergy (Mild, Verified 11/23/19 11:48) Pruritis Past Medical History - General Information source: Patient - Social History Smoking Status: Current Every Day Smoker - Smokes about six cigarettes per day Family History: Reviewed & Not Pertinent - Past Medical History Cardiac Medical History: Reports: Hx Hypertension - stopped taking medications Neurological Medical History: Reports: Hx Migraine Renal/ Medical History: Denies: Hx Peritoneal Dialysis Physical Exam - General General appearance: Appears well, Alert In distress: None Notes: PHYSICAL EXAMINATION: GENERAL: Well-appearing and in no acute distress. HEAD: Atraumatic, normocephalic. EYES: sclera anicteric, conjunctiva are normal. ENT: nares patent. Moist mucous membranes. NECK: Normal range of motion, supple without lymphadenopathy LUNGS: CTAB and equal. No wheezes rales or rhonchi. Respirations even and unlabored lung sounds clear. HEART: Regular rate and rhythm without murmurs ABDOMEN: Soft, nontender, normal bowel sounds, no guarding. EXTREMITIES: Normal range of motion, no pitting edema. No cyanosis. NEUROLOGICAL: Cranial nerves grossly intact. Normal speech. Normal gait. PSYCH: Normal mood, normal affect. SKIN: Warm, Dry, normal turgor, no rashes or lesions noted Diagnostic Results Laboratory Results: Pending strep culture pending Covid testing results. Patient provided instructions regarding Covid to include: As a person under investigation for Covid 19, the [facility], division of public health advises you to adhere to the following guidance until your test results are reported to you. If your test result is positive, you will receive additional information from your provider and your local health department at that time. Remain at home until you are cleared by the health provider or public health authorities. Keep a log of visitors to your home, notify any visitors to your home of your isolation status. If you plan to move to a new address or leave the county, notify the local health department in your County. Call your doctor or seek care if you have an urgent medical need. Before seeking medical care, call ahead to get instructions from the provider before arriving at the medical office clinic or hospital. Notify them that you are being tested for the virus that causes Covid 19 so that arrangements can be made, as necessary, to prevent transmission to others in the healthcare setting. Next, notify the local health department in your county. If a medical emergency arises and you need to call 911, inform the first responders that you are being tested for the virus that causes Covid 19. Next, notify the local health department in your county. Patient Education/Counseling Counseling/Education: Patient presents with upper respiratory symptoms worrisome for possible Covid 19. Patient does not have emergency worring symptoms such as difficulty breathing, shortness of breath, chest pain, pressure, confusion or cyanosis. Patient appears suitable for discharge. Patient instructed to follow-up at ED for persistent or worsening symptoms. Patient's vital signs are stable and patient is nontoxic in appearance. Good return precautions have been discussed with patient, patient verbalized understanding and is agreeable with discharge plan of care at this time. RDC Discharge - Discharge Clinical Impression: Flu-like symptoms, Encounter for screening laboratory testing for COVID-19 virus Condition: Stable Disposition: Home; Selfcare
[2020-11-24 14:12] LABS: A TYPE INFLUENZA AG NEGATIVE (NEGATIVE); B INFLUENZA AG NEGATIVE (NEGATIVE)
== END ==
LOC: RDC 10:33
PROVIDERS: ATTEND Nurse Practitioner Family
DX: Z20.822 Contact with and (suspected) exposure to COVID-19 (principal); R50.9 Fever, unspecified; J02.9 Acute pharyngitis, unspecified; R09.89 Other specified symptoms and signs involving the circulatory and respiratory systems; M79.10 Myalgia, unspecified site; R11.0 Nausea; R51.9 Headache, unspecified; R10.9 Unspecified abdominal pain; R19.7 Diarrhea, unspecified; I10 Essential (primary) hypertension; F17.210 Nicotine dependence, cigarettes, uncomplicated
CPT/HCPCS: 87070; 87880; 87635; 87804; C9803